=== PATIENT | male | born 1980 | race Caucasian/White ===

== ENCOUNTER 2024-09-10 18:02 | Emergency (ER) | payer SELFPAY ==
[~2024-09-10] VITALS: Ht 170.2 cm; Wt 74.8 kg
[~2024-09-10 18:02] MED LIST: ALPR1TAB2 PO
[2024-09-10 18:08] VITALS: BP 164/102; PULSE 110; RESP 20; TEMP 98; O2SAT 98
[2024-09-10 20:10] VITALS: BP 129/90; PULSE 90; RESP 19; TEMP 98; O2SAT 98
== END 2024-09-10 20:10 | disposition home or self-care (01) ==
LOC: MED 18:02
DX: F10.129 Alcohol abuse with intoxication, unspecified (principal); R51.9 Headache, unspecified; R07.89 Other chest pain; F41.9 Anxiety disorder, unspecified; Z79.899 Other long term (current) drug therapy; Y90.9 Presence of alcohol in blood, level not specified
CPT/HCPCS: 71101; 99283; Q0092